=== PATIENT | female | born 1975 | race Caucasian/White ===

== ENCOUNTER → 2021-10-24 | Outpatient (CLI) | payer BC ==
[~2021-10-24] MED LIST: AUGMENTIN 875-1 EACH PO; BACTRIM DS TAB1 EACH PO; NAPROSYN500 MG PO; NORCO 5-325 TA1 EACH PO; PERCOCET 5-3251 EACH PO; ZOFRAN4 MG PO
[2021-10-24 13:41] LABS: HEMOGLOBIN 11.9 gm/dl (12.3-15.3); RED BLOOD COUNT 5.87 M/UL (4.00-5.10)
[2021-10-24 14:04] LABS: BUN/CREATININE RATIO 20 (0-10)
[2021-10-25 08:15] LABS: VITAMIN D, 25-HYDROXY 12.8 ng/mL (30.0-100.0)
[2021-10-25 11:16] LABS: ANTISTREPTOLYSIN O AB 303.8 IU/mL (0.0-200.0); RHEUMATOID ARTHRITIS FACTOR <10.0 IU/mL (<14.0)
== END ==
LOC: LAB 13:05
PROVIDERS: Nurse Practitioner Family
DX: Z00.00 Encounter for general adult medical examination without abnormal findings (principal); Z13.220 Encounter for screening for lipoid disorders; K59.09 Other constipation; F32.A Depression, unspecified; J98.6 Disorders of diaphragm; G43.909 Migraine, unspecified, not intractable, without status migrainosus; F41.9 Anxiety disorder, unspecified; R53.83 Other fatigue; E53.8 Deficiency of other specified B group vitamins; E55.9 Vitamin D deficiency, unspecified; M25.50 Pain in unspecified joint
CPT/HCPCS: 36415; 80053; 80061; 81001; 82607; 84439; 84443; 84550; 85025; 85652; 86038; 86060; 86141; 86431

== ENCOUNTER → 2021-11-15 | Outpatient (CLI) | payer BC | LOC: MAMO 13:34 | DX: N64.4 Mastodynia (principal) | CPT/HCPCS: 76641-LT; 77066; G0279 ==